=== PATIENT | female | born 1955 | race Caucasian/White ===

== ENCOUNTER 2017-02-26 12:01 | Inpatient (IN) | payer MEDICAID, MEDICARE ==
--- NOTE | 2017-02-20 07:02 | Rehab Joint Replacement Pre-Op ---
Rehab Joint Replacement Pre-Op - Pre-Op Visit Reviewed Items Scheduled for Post Op Visit: No Scheduled Post Op Visit Date: 02/19/17 [place] Hose/Garment Measure THR - Thigh High: Yes Exercise Reviewed: Yes Stair Climbing: Yes Cane/Walker/Crutch Training: Yes Vend Equipment - Cane or Walker and OT Kit: N/A (Pt reports she has some of the equipment but may need sock aid extended scrubber and shoe horn.) List of Venders in the Area: Yes Shower Chair Transfers: Yes Car Transfers: Yes Bed Transfers: Yes Medical History Forms Issued: No Functional Scale Forms Issued: No Additional Comments: The patient will not be doing PT here as far as she knows. She is not sure she will have therapy at all. The home environment does not sound like it is conducive to independence following this surgery. Family or other arrangements may need to be made.
[~2017-02-26 12:01] MED LIST: ACETAMINOPHEN 1000MG/100 ML PREMIX IV ONE; CELECOXIB 100 MG CAPSULE PO ONE; FAMOTIDINE 20MG TABLET PO ONE; MECLIZINE 25 MG TABLET PO ONE; METOCLOPRAMIDE 10 MG TABLET PO ONE; VANCOMYCIN HCL 1,000 MG in 0.9 % SODIUM CHLORIDE 250ML 250 ML IVPB ONE
[2017-02-26 13:17] LABS: ABO GROUP AB; ANTIBODY SCREEN NEGATIVE (NEGATIVE); RH TYPE POSITIVE
[2017-02-26] MEDS ORDERED: EPHEDRINE SULFATE 50 MG/ML ML IV ONE (14:00)
[2017-02-26] MEDS ORDERED: VANCOMYCIN HCL 1 GM VIAL IVPB ONE (14:00)
[2017-02-26] MEDS ORDERED: LIDOCAINE 2% MDV (20MG/ML) 20ML VIAL IV ONE (14:00)
[2017-02-26] MEDS ORDERED: FENTANYL PF 100MCG/2ML VIAL IV ONE (14:00)
[2017-02-26] MEDS ORDERED: PROPOFOL 10 MG/ML VIAL IV ONE (14:00)
[2017-02-26] MEDS ORDERED: BUPIVACAINE 0.25% W/EPI MPF 30ML VIAL IVP ONE (14:00)
[2017-02-26] MEDS ORDERED: DIPHENHYDRAMINE HCL IV 50 MG/ML VIAL IVP ONE (14:00)
[2017-02-26] MEDS ORDERED: ONDANSETRON HCL IV 4 MG/2 ML VIAL IVP ONE (14:00)
[2017-02-26] MEDS ORDERED: MIDAZOLAM HCL 2MG/2ML VIAL IV ONE (14:00)
[2017-02-26] MEDS ORDERED: TRANEXAMIC ACID 1,000 MG/10 ML ML IV ONE (14:00)
[2017-02-26] MEDS ORDERED: AL HYDROX/MAG HYDROX 30ML UD PO PRN (16:14)
[2017-02-26] MEDS ORDERED: HYDROMORPHONE HCL 1 MG/ML CPJ IM PRN (16:14)
[2017-02-26] MEDS ORDERED: NALOXONE 0.4 MG/1 ML VIAL IVP PRN (16:14)
[2017-02-26] MEDS ORDERED: MORPHINE SULFATE 5 MG/ML PFS IVP PRN ×3 (16:14)
[2017-02-26] MEDS ORDERED: ACETAMINOPHEN 325 MG TAB PO PRN (16:14)
[2017-02-26] MEDS ORDERED: ONDANSETRON HCL IV 4 MG/2 ML VIAL IVP PRN (16:14)
[2017-02-26] MEDS ORDERED: BISACODYL 10 MG SUPP RC PRN (16:14)
[2017-02-26] MEDS ORDERED: PROMETHAZINE HCL 12.5 MG in 0.9 % SODIUM CHLORIDE 100ML 50 ML IVPB PRN (16:14)
[2017-02-26] MEDS ORDERED: TRAMADOL HCL 50 MG TABLET PO PRN (16:14)
[2017-02-26] MEDS ORDERED: HYDROCODONE/APAP 5/325MG TABLET PO PRN ×2 (16:14)
[2017-02-26] MEDS ORDERED: DIPHENHYDRAMINE HCL 25 MG CAPSULE PO PRN (16:14)
[2017-02-26] MEDS ORDERED: DEXTROSE 5 % AND 0.9 % NACL 1,000 ML IV PRN (16:14)
[2017-02-26] MEDS ORDERED: ACETAMINOPHEN/CODEINE TABLET PO PRN ×2 (16:14)
[2017-02-26] MEDS ORDERED: HYDROMORPHONE HCL 2 MG/ML VIAL IM PRN (16:14)
[2017-02-26] MEDS ORDERED: MAGNESIUM HYDROXIDE 30 ML UDC PO PRN (16:14)
[2017-02-26] MEDS ORDERED: KETOROLAC 30 MG/ML VIAL IVP PRN ×2 (16:14)
[2017-02-26] MEDS ORDERED: METOCLOPRAMIDE HCL 10 MG/2 ML VIAL IVP PRN (16:14)
[2017-02-26] MEDS ORDERED: ACETAMINOPHEN W/ CODEINE 300MG/60MG TABLET PO PRN ×2 (16:14)
[2017-02-26] MEDS: VANCOMYCIN HCL 1 MG in 0.9 % SODIUM CHLORIDE 250ML 250 ML IVPB SCH (18:13)
[2017-02-26] MEDS: HYDROCODONE/APAP 7.5/325MG TABLET PO PRN (21:33)
[2017-02-26] MEDS: FERROUS SULFATE 325 MG TAB PO SCH (21:38)
[2017-02-26] MEDS: DOCUSATE SODIUM 100 MG CAPSULE PO SCH (21:38)
[2017-02-27] MEDS: TRAMADOL HCL 50 MG TABLET PO PRN ×2 (00:04→06:36)
[2017-02-27] MEDS: ZOLPIDEM TARTRATE 5 MG TABLET PO PRN (00:10)
[2017-02-27] MEDS: HYDROCODONE/APAP 7.5/325MG TABLET PO PRN ×4 (03:56→20:52)
[2017-02-27] MEDS: VANCOMYCIN HCL 1 MG in 0.9 % SODIUM CHLORIDE 250ML 250 ML IVPB SCH (04:57)
[2017-02-27] MEDS: MORPHINE SULFATE 5 MG/ML PFS IVP PRN ×2 (06:37→17:58)
[2017-02-27 06:39] LABS: HEMOGLOBIN 12.9 gm/dl (11.6-16.0)
[2017-02-27] MEDS: DOCUSATE SODIUM 100 MG CAPSULE PO SCH ×2 (10:22→22:17)
[2017-02-27] MEDS: CELECOXIB 100 MG CAPSULE PO SCH (10:25)
[2017-02-27] MEDS: RIVAROXABAN 10 MG TABLET PO SCH (10:26)
[2017-02-27] MEDS: FERROUS SULFATE 325 MG TAB PO SCH ×2 (10:26→22:17)
--- NOTE | 2017-02-27 10:57 | Rehab Evaluation ---
Patient Information - Patient Information Diagnosis: OA with EDMUNDO right Ordered Treatment: PT Evaluate and Treat Status: Initial Evaluation Surgery: Yes (EDMUNDO right) Date of Surgery: 02/26/17 Past Medical/Surgical Hx: PAST MEDICAL/SURGICAL HISTORY Past Surgical History SPINAL FUSION 2008; 2010 (2ND CAGE); COLONOSCOPY;T&A; RT LEG VEIN STRIPPING PMH - Respiratory Hx Respiratory Disorders Yes Hx Bronchitis Yes: WINTER 2015 "BIRD FLU" Hx Pneumonia Yes: LLL 20 YRS AGO Hx Sleep Apnea Yes Hx of CPAP Yes Hx of SOB Yes: EXERTIONAL PMH - Cardiovascular Hx Cardiovascular Disorders Yes Hx Deep Vein Thrombosis Yes: RTX1, LT X2 Hx Hypertension Yes: GOOD CONTROL WITH MEDS Hx Palpitations Yes Hx Vascular Disease Yes: LEGS Exercise Tolerance Fair Comment: USES CANE/WALKER PMH - Neuro Hx Neurological Disorders Yes Hx Headaches Yes Hx Neuropathy Yes: BOTH HANDS-OUTER FINGERS PMH - GI Hx Gastrointestinal Disorders Yes Hx Crohn's Disease Yes: BEGINNING OF Hx Diverticulitis Yes Hx Gastroesophageal Reflux Yes: PRILOSEC HELPS Hx Hepatitis/Jaundice Yes: AGE17 Hx Irritable Bowel Yes Hx Nausea/Vomiting Yes: IBS Hx Weight Loss/Weight Gain Yes: LOSS OF 10LBS PMH - Hx Genitourinary Disorders Yes Hx Age of Menopause 52 Patient No Hx Bladder Problem Yes: STRESS INCONTINENCE PMH - Endocrine Hx Endocrine Disorders Yes Hx Thyroid Disease Yes PMH - Musculoskeletal Hx Musculoskeletal Disorders Yes Hx Arthritis Yes: ALL OVER Hx Fibromyalgia Yes: ? Comment: SEES NEUROLOGIST IN [employer] PMH - Psych Hx Psychiatric Problems No PMH - Hematology/Oncology Hx Hematology/Oncology No Disorders Social History: Detail (Lives alone in mobile home, three steps into unit then all on one level) Precautions: [place], Fall - Time With Patient Total Time Spent With Patient (Min): 30 Treatment Procedures: Detail (Patient seen in room, had a horrible night with lots of pain and no sleep. She still has a lot of pain even with meds varied for best results. Patient able to move supine to sit with lots of assist, sit to stand with verbal cues then ambulated with FWW 10 feet to bathroom with WBAT , verbal cues for gait and to sit down with leg out front. Sit to stand more independently from toilet, able to wash hands then ambulated with WBAT and FWW back to bed. Reviewed exercises for hip: heel slides, quad and glut sets then replaced compressive stockings, call light, pillow between knees, tray table close.) Subjective Information - Subjective Information Per Patient (Patient in terrible pain this am, at least 10/10 and has not been able to eat or sleep. Pain meds not helping.) Objective Data - Pain Pain Present: Yes Pain Scale Used: Numeric (1 - 10) (10) - Mental Status Patient Orientation: Oriented x3 - Visual Perception Appears within normal limits for therapeutic activities - ROM Within normal limits (except right hip decreased for active ROM at this time secondary to pain and surgery.) - Strength/Tone Within normal limits (except right hip 3-/2+/5 today.) - Coordination Deficit (Difficult for this patient right now to mobilize easily secondary to severe pain.) - Bed Mobility Needs Assist (Patient needs some assist supine to sit and up in bed.) - Transfers Needs Assist (CGA for safety) - Balance Balance Sitting: Good Balance Standing: Good (Good with FWW) - Gait Detail (Able to ambulate short distance to bathroom WBAT with FWW and CGA for safety then back to bed.) - Special Tests No Therapy Assessment - Therapy Assessment Detail (Patient really has a lot of pain today and more than before surgery even at this time. Meds are only slightly helpful and patient very concerned about going home at this time. Needs some rest and meds that work for her. She was taking a lot before surgery she indicated. WB is still aggravating hip but she is able to walk short distances. Needs reminders of hip precautions.) Patient Education - Patient Education Teaching Topic: Equipment Use, Exercise/Activity Response: Return Demonstration Teaching Method: Demonstration Teaching Recipient: Patient Barriers To Learning: None Problem List - Problem List Physical Therapy Problem List: Detail (1. Decreased mobility after surgery of hip. 2. Decreased functional gait and balance at this time. 3. Decreased self- care.) Goals - Goals Physical Therapy Goals: 1. Mobility with min or no assist in room 2. Gait community distances safely with FWW 3. Able to care for self at home at least 50 % Prognosis - Prognosis Good (Hopefully this afternoon will be better and meds will help and activity.) Plan - Plan Physical Therapy Plan: Continue PT BID day after surgery and possibly next day as well to make sure patient able to safely return home with help of family.
--- NOTE | 2017-02-27 13:30 | Occupational Therapy Tx Note ---
Occupational Therapy Tx Note - Treatment Note Occupational Therapy Treatment Note: Detail (Attempted to complete OT eval x 2. Pt too painful at both attempts. Will complete on 02/28/17.)
[2017-02-27] MEDS: ATENOLOL 50 MG TABLET PO SCH (13:59)
--- NOTE | 2017-02-27 15:55 | Physical Therapy Tx Note ---
Physical Therapy Tx Note - Treatment Note Tolerated: Good (Patient really still c/o a lot of pain but willing to get up and move. Needed to go to bathroom so agreed to at least walk that far. Actually walking better this afternoon and able to correctly weightbear and keep right leg in forward position compared to left now.) Total Time Spent With Patient: 30 Physical Therapy Tx Note: Detail (Patient seen in room, still difficult to pivot supine to sit, but independent with sit to stand. Ambulated with FWW and WBAT to bathroom (about 10 feet), sitting on toilet required sliding leg out in front of her but difficult to let self down yet onto seat. Really needs higher seat. Able to sit to stand from seat correctly and washed hands then ambulated in griffin about 40 feet more then back to bed. Reviewed hip precautions then performed some of hip exercises until pain too much. Difficult for patient to extend hip to neutral. Replaced cryopad and lower leg air pump pads then tray table and call light.) Physical Therapy Problem List: Detail (1. Decreased mobility after surgery of hip. 2. Decreased functional gait and balance at this time. 3. Decreased self- care.) Physical Therapy Goals: 1. Mobility with min or no assist in room 2. Gait community distances safely with FWW 3. Able to care for self at home at least 50 % Prognosis: Good (Slowly getting more active but pain continues.) Physical Therapy Plan: Continue PT BID day after surgery and possibly next day as well to make sure patient able to safely return home with help of family.
[2017-02-28] MEDS: HYDROCODONE/APAP 7.5/325MG TABLET PO PRN ×3 (00:50→15:57)
[2017-02-28] MEDS: ZOLPIDEM TARTRATE 5 MG TABLET PO PRN (01:27)
[2017-02-28 06:25] LABS: HEMATOCRIT 39.9 % (35.0-47.0); HEMOGLOBIN 13.4 gm/dl (11.6-16.0)
[2017-02-28] MEDS: DOCUSATE SODIUM 100 MG CAPSULE PO SCH (10:13)
[2017-02-28] MEDS: FERROUS SULFATE 325 MG TAB PO SCH (10:13)
[2017-02-28] MEDS: CELECOXIB 100 MG CAPSULE PO SCH (10:13)
[2017-02-28] MEDS: RIVAROXABAN 10 MG TABLET PO SCH (10:13)
[2017-02-28] MEDS: ATENOLOL 50 MG TABLET PO SCH (10:13)
--- NOTE | 2017-02-28 10:49 | Rehab Evaluation ---
Patient Information - Patient Information Diagnosis: OA with EDMUNDO right Ordered Treatment: OT Evaluate and Treat Status: Initial Evaluation Surgery: Yes (EDMUNDO right) Date of Surgery: 02/26/17 Past Medical/Surgical Hx: PAST MEDICAL/SURGICAL HISTORY Past Surgical History SPINAL FUSION 2008; 2010 (2ND CAGE); COLONOSCOPY;T&A; RT LEG VEIN STRIPPING PMH - Respiratory Hx Respiratory Disorders Yes Hx Bronchitis Yes: WINTER 2015 "BIRD FLU" Hx Pneumonia Yes: LLL 20 YRS AGO Hx Sleep Apnea Yes Hx of CPAP Yes Hx of SOB Yes: EXERTIONAL PMH - Cardiovascular Hx Cardiovascular Disorders Yes Hx Deep Vein Thrombosis Yes: RTX1, LT X2 Hx Hypertension Yes: GOOD CONTROL WITH MEDS Hx Palpitations Yes Hx Vascular Disease Yes: LEGS Exercise Tolerance Fair Comment: USES CANE/WALKER PMH - Neuro Hx Neurological Disorders Yes Hx Headaches Yes Hx Neuropathy Yes: BOTH HANDS-OUTER FINGERS PMH - GI Hx Gastrointestinal Disorders Yes Hx Crohn's Disease Yes: BEGINNING OF Hx Diverticulitis Yes Hx Gastroesophageal Reflux Yes: PRILOSEC HELPS Hx Hepatitis/Jaundice Yes: AGE17 Hx Irritable Bowel Yes Hx Nausea/Vomiting Yes: IBS Hx Weight Loss/Weight Gain Yes: LOSS OF 10LBS PMH - Hx Genitourinary Disorders Yes Hx Age of Menopause 52 Patient No Hx Bladder Problem Yes: STRESS INCONTINENCE PMH - Endocrine Hx Endocrine Disorders Yes Hx Thyroid Disease Yes PMH - Musculoskeletal Hx Musculoskeletal Disorders Yes Hx Arthritis Yes: ALL OVER Hx Fibromyalgia Yes: ? 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 She has a tub/shower combination with an extended tub bench and hand held shower. She has a standard height toilet with a riser. She was Ind with all ADLs and IADLs prior to surgery. She has a 2 wheeled walker and a quad cane.) Precautions: [place], Fall, Other (Hip precautions) - Time With Patient Total Time Spent With Patient (Min): 40 Treatment Procedures: Detail (OT eval low complexity) Subjective Information - Subjective Information Per Patient Objective Data - Pain Pain Present: Yes (Hip pain) - Mental Status Patient Orientation: Oriented x3 - Visual Perception Appears within normal limits for therapeutic activities - ROM Within normal limits (Fantasma UE AROM WNL) - Strength/Tone Within normal limits (Fantasma UE MMT WNL) - Coordination Appears within normal limits for therapeutic activities - Bed Mobility Independent (Ind with supine to sit) - Transfers Independent (Ind with all transfers from EOB, chair and commode.) - Balance Balance Sitting: Good Balance Standing: Good - Sensation Intact - Gait Detail (Pt ambulated to bathroom and to chair with 2 wheeled walker.) - ADL's/IADL's Detail (Pt educated and demonstrated learning of LE dressing including underpants, pants, socks and shoes with use of adaptive equipment and modified dressing techniques while maintaining THR precautions.) Therapy Assessment - Therapy Assessment Detail (Pt safe and Ind with self cares using adaptive equipment to ensure maintaining of total hip precautions.) Problem List - Problem List Physical Therapy Problem List: Detail (1. Decreased mobility after surgery of hip. 2. Decreased functional gait and balance at this time. 3. Decreased self- care.) Occupational Therapy Problem List: Detail (No OT problems identified) Goals - Goals Physical Therapy Goals: 1. Mobility with min or no assist in room 2. Gait community distances safely with FWW 3. Able to care for self at home at least 50 % Occupational Therapy Goals: No OT goals identified. Prognosis - Prognosis Good Plan - Plan Physical Therapy Plan: Continue PT BID day after surgery and possibly next day as well to make sure patient able to safely return home with help of family. Occupational Therapy Plan: No further OT needed at this time. Thank you for this referral.
--- NOTE | 2017-02-28 11:38 | Physical Therapy Tx Note ---
Physical Therapy Tx Note - Treatment Note Tolerated: Good (Patient is doing much better today and able to ambulate in griffin as well as do stairs times two(three steps up and down).) Total Time Spent With Patient: 30 Physical Therapy Tx Note: Detail (Patient seen in room, sitting up in chair and dressed. Sit to stand independently with FWW then ambulated 100 feet in griffin to stairway, stepped down three steps with rail and folded walker with good technique then pivoted around and walked back up three steps same technique. Rested in wheelchair in griffin for a couple of minutes then ambulated down steps again with quad cane and rail, then back up with same equipment. Ambulated back to room with FWW with WBAT for right LE with good technique and independently. Sat up in chair and reviewed hip precautions again and worked through hip exercises in seated position. Left patient seated in chair and ready for lunch.) Physical Therapy Problem List: Detail (1. Decreased mobility after surgery of hip. 2. Decreased functional gait and balance at this time. 3. Decreased self- care.) Physical Therapy Goals: 1. Mobility with min or no assist in room 2. Gait community distances safely with FWW 3. Able to care for self at home at least 50 % Prognosis: Good (Patient doing extremely well now and ready for discharge home if doctor clears her. If she is still here this afternoon, we can see her again for more practice but she has met all goals and is doing very well with mobility, gait and function now.) Physical Therapy Plan: Continue PT BID day after surgery and possibly next day as well to make sure patient able to safely return home with help of family.
[2017-02-28] MEDS: TRAMADOL HCL 50 MG TABLET PO PRN (12:09)
--- NOTE | 2017-02-28 14:34 | Physical Therapy Tx Note ---
Physical Therapy Tx Note - Treatment Note Tolerated: Good (Patient doing very well this afternoon and waiting for orders from surgeon to be discharged home. Much less pain now and feels she will do well at home. Discussed issues with bed and getting into and out of to make sure will keep hip precautions in mind.) Total Time Spent With Patient: 20 Physical Therapy Tx Note: Detail (Patient seen bedside and resting in bed, supine to sit independently today and discussed bed at home and easiest way to get into bed and out of bed for hip positioning and able to perform correctly. Ambulated with FWW about 110 feet to nurses' station then back to room with FWW and WBAT. Patient needed to go to restroom so left her on commode. Call light available when finished.) Physical Therapy Problem List: Detail (1. Decreased mobility after surgery of hip. 2. Decreased functional gait and balance at this time. 3. Decreased self- care.) Physical Therapy Goals: 1. Mobility with min or no assist in room 2. Gait community distances safely with FWW 3. Able to care for self at home at least 50 % Prognosis: Good (Patient ready for discharge home with family. Has met all goals and should do well.) Physical Therapy Plan: Continue PT BID day after surgery and possibly next day as well to make sure patient able to safely return home with help of family.
--- NOTE | 2017-03-02 14:01 | RADIOLOGY REPORT ---
EXAM: AP RIGHT HIP HISTORY: POSTOP RIGHT HIP SURGERY FOR RIGHT HIP FRACTURE. TECHNIQUE: A single AP view of the right hip were obtained. Comparison: None. FINDINGS: The patient is postop right EDMUNDO. Components appear in good position in the AP projection. Some air is seen in the soft tissues which is presumably postoperative in nature. Some apparent postoperative change partially seen overlying the right side of the visualized lumbar spine as well. IMPRESSION: POSTOP RIGHT EDMUNDO WITH GOOD ALIGNMENT IN THE AP PROJECTION. JOB NUMBER: [id number] MTDD
--- NOTE | 2017-03-05 09:43 | Operative Note ---
DATE OF SURGERY:02/26/2017 PREOPERATIVE DIAGNOSIS: End-stage right hip arthrosis. POSTOPERATIVE DIAGNOSIS: End-stage right hip arthrosis. OPERATION: Right total hip arthroplasty. Surgeon: Kristopher Rodrigez M.D. Anesthesia: Spinal. Anesthesia Provider: MARNIE Amin. COMPLICATIONS: None. Blood Loss: 150 mL. OPERATIVE FINDINGS: Bone on bone hip arthrosis, massive spurs, acetabular dysplasia with increased coxa valga. Indications for Operation: A 61-year-old female with dysplasia, who has had persistent pain and dysfunction in her hip for several years. She failed nonoperative treatment and was scheduled for hip replacement. I explained all risks and benefits of surgery in detail, diagnosis and procedures including but not limited to infection, nerve injury, vessel injury, persistent pain, numbness and tingling in her hip, periprosthetic fracture, need for resection, arthroplasty, components could in fact loosen, nerve injury, vessel injury, blood clot, any need for further procedures, need for anticoagulation to prevent blood clots, risks associated with these medications and all of her questions were thoroughly answered. Course was outlined and she agreed to proceed. PROCEDURE: The patient was brought into the OR, placed in the left lateral decubitus position. The right hip and lower extremity were prepped and draped in free and sterile fashion, was prepped using Chloraprep and draped. An intraoperative timeout was performed. Next, a incision template was marked over the posterolateral gluteal area for post approach. It was infiltrated with 0.5% Marcaine with epi. Skin and subcutaneous tissue dissected down. Gluteal fascia planes and bluntly dissected , dissected down onto the short external rotators, then released #2 Vicryl and then sciatic nerve, carefully protected at all time. We then released the capsule superiorly and inferiorly, and the femoral head without difficulty. We then resected the femoral head about 1.5 cm above the lesser trochanter, protecting the soft tissues. We then inserted the box osteotome, started to ream by hand with an 8 mm reamer size 13. We stopped there. We broached an 11 calcar plane, then a 12 calcar plane, a 13 had good fit. cemented at 13. There was osteo product, soft bone with large canal. A small female. Next, then attention was turned to the acetabulum. We released the capsule on the anterior, place the Joselin retractor there, retracted the proximal femur out of the way, placed an inferior acetabular retractor and then a superior Dinorah retractor. Had good exposure of the humeral, of the acetabulum, then resected the labrum, capsule tissue and ligament and then irrigated around the periphery. Next, we started reaming, a 44 mm reamer first, medialized as much as possible deep medial and then reamed in 1 mm increments in 45 degrees inclination, 20 degrees anteversion and reamed up to a size 51. Trial 52 shell had excellent fit and that was the sized that we used. We irrigated the acetabulum copiously. Changed gloves and impacted down the real 3-hole acetabular reflection shell until it was flush with the medial wall. Drilled the posterior screw on, measured for a 40 mm screw, inserted that screw with excellent purchase. Placed a trial liner and did a trial reduction. range of motion ability and symmetric leg lengths was with high offset of 32 + 0 mm head. This allowed for flexion to 90 and rotation to 80, and the hip was still stable. Good abductor tensioning and stability with extension, external rotation, symmetric leg lengths. and then removed all trial components. We irrigated the femoral canal copiously, placed distally, injected the cement in removed the suction catheter, then inserted the real stem until it was flushed with a and then 15 degrees of until the cement was hardened. Previously, we did impact the real acetabular component, placed at the central thread, a screw cap, 2 screw caps, and packed down the 35 degree hooded insert in the posterior superior quadrant, packed it down to verify it was stable. Next, we placed the real femoral head in and reduced the hip . Next, irrigated copiously, abductor using a #2 running Vicryl stitch and then we injected with our Exparel tranexamic acid, 0.5% Marcaine with epi mixture. Several sticks 2-3 cm deep but 2-3 cm in distance throughout the deep tissues, capsule, gluteal and muscle fascia, subcutaneous, and skin to infiltrate the entire area nicely. We then closed the gluteal fascia with running #2 Quill. Closed the skin deep with 2-0 Vicryl and running 2-0 Quill, and injected 0.5% Marcaine with epi again. Sterile dressing was applied. Abduction pillow. Intraoperative x-ray with good fit, orientation, . The patient tolerated the procedure well. No intraoperative complication. Sponge, needle and instrument counts correct. Recovery stable. Neuro is intact. She will be discharged to the floor for pain control and IV antibiotics, likely discharge in 1-2 days, likely follow up in 1 week or 2 weeks. CC: Dr. Tone GARDNER
== END 2017-02-28 17:40 | disposition home health service (06) | DRG 470 ==
LOC: MEDSURG 12:01
PROVIDERS: ADMIT Orthopaedic Surgery; ATTEND Orthopaedic Surgery
PROC: 0SR9049 Replacement of Right Hip Joint with Ceramic on Polyethylene Synthetic Substitute, Cemented, Open Approach (ICD-10-PCS; principal; 2017-02-26 14:00)
DX: M16.11 Unilateral primary osteoarthritis, right hip (principal); K50.90 Crohn's disease, unspecified, without complications; I10 Essential (primary) hypertension
CPT/HCPCS: 85014; 85018; 86850; 86900; 86901; 94620; 97110; 97116; 97165; J1170; J1200; J1885; J2405; J7042; J7050